=== PATIENT | male | born 1950 | race Caucasian/White ===

== ENCOUNTER 2019-09-02 10:03 | Day surgery (SDC) | payer MEDICARE ==
[~2019-09-02] VITALS: Ht 175.3 cm; Wt 66.0 kg
== END 2019-09-02 12:10 | disposition home or self-care (01) ==
LOC: ORSCSDS 10:03
PROVIDERS: Surgery
PROC: 0DBK8ZX Excision of Ascending Colon, Via Natural or Artificial Opening Endoscopic, Diagnostic (ICD-10-PCS; principal; 2019-09-02 11:15)
DX: Z12.11 Encounter for screening for malignant neoplasm of colon (principal); D12.2 Benign neoplasm of ascending colon; J45.909 Unspecified asthma, uncomplicated; F17.210 Nicotine dependence, cigarettes, uncomplicated
CPT/HCPCS: 88305; J2704

== ENCOUNTER 2022-05-08 19:03 | Inpatient (IN) | payer OTHER ==
[~2022-05-08] VITALS: Ht 177.8 cm; Wt 81.7 kg
[~2022-05-08 19:03] MED LIST: FLUT1DIS2 INH
[2022-05-08 19:20] LABS: BASOPHILS ABSOLUTE AUTO 0.05 K/mm3 (0.00-0.23); BASOPHILS PERCENT AUTO 0 % (0-2); EOSINOPHILS ABSOLUTE AUTO 0.76 K/mm3 (0.00-0.68); EOSINOPHILS PERCENT AUTO 5 % (0-6); Hematocrit 37.6 % (37.0-53.0); Hemoglobin 12.6 g/dL (13.5-17.5); IMMATURE GRAN ABSOLUTE AUTO 0.12 K/mm3 (0.00-0.10); IMMATURE GRAN PERCENT AUTO 1 % (0-1); LYMPHOCYTES PERCENT AUTO 11 % (21-46); MONOCYTES ABSOLUTE AUTO 1.02 K/mm3 (0.16-1.47); MONOCYTES PERCENT AUTO 6 % (4-13); Mean Corpuscular HGB 29.6 pg (26.0-34.0); Mean Corpuscular HGB Conc 33.5 g/dL (31.5-36.5); Mean Corpuscular Volume 89 fL (80-100); Mean Platelet Volume 9.7 fL (9.1-12.4); NEUTROPHILS ABSOLUTE AUTO 12.72 K/mm3 (1.96-9.15); NEUTROPHILS PERCENT AUTO 77 % (41-73); Platelet Count 302 K/mm3 (150-400); RDW Coefficient Variation 11.9 % (11.7-14.2); RDW Standard Deviation 38.2 fL (35.1-46.3); Red Blood Cell Count 4.25 M/mm3 (4.30-5.90); White Blood Cell Count 16.47 K/mm3 (4.00-11.30)
[2022-05-08 19:37] LABS: International Normalized Ratio 1.09; Prothrombin Time Results 11.4 Sec (9.7-11.5)
[2022-05-08 19:43] LABS: Albumin, Blood 3.4 g/dL (3.4-5.0); Albumin/Globulin Ratio 0.9 (0.8-1.8); Bilirubin, Total 0.9 mg/dL (0.1-1.0); Bun/Creatinine Ratio 19.1 (12.0-20.0); Calcium, Blood 8.5 mg/dL (8.5-10.1); Creatinine, Blood 0.94 mg/dL (0.60-1.20); Globulin, Blood 3.7 g/dL (2.2-4.0); Potassium, Blood 4.1 mmol/L (3.5-5.5); Total Protein, Blood 7.1 g/dL (6.4-8.2)
[2022-05-08] MEDS ORDERED: ALBU90OI INH (22:38)
[2022-05-09 04:39] LABS: Hematocrit 37.8 % (37.0-53.0); Hemoglobin 12.5 g/dL (13.5-17.5); Mean Corpuscular HGB 29.6 pg (26.0-34.0); Mean Corpuscular HGB Conc 33.1 g/dL (31.5-36.5); Mean Corpuscular Volume 90 fL (80-100); Platelet Count 237 K/mm3 (150-400); RDW Coefficient Variation 11.9 % (11.7-14.2); RDW Standard Deviation 38.4 fL (35.1-46.3); Red Blood Cell Count 4.22 M/mm3 (4.30-5.90); White Blood Cell Count 11.16 K/mm3 (4.00-11.30)
--- NOTE | 2022-05-09 04:48 | NUR ---
SUMMARY PT ARRIVED TO FLOOR IN NO DISTRESS. PT PAIN HAS BEEN MANAGED WELL. PT CX TUBE IS CONNECTED TO WALL SUCTION, PT BREATHING EASY. SEROSANG FLUID DRAINING IN CX TUBE. LEFT ARM IN SLING. PT ON CONTINOUS BIOX, SPO2 >90%. PT HAD A EPISODE OF NAUSEA AND WAS TX PER EMAR WITH RELIEF. PT HAS VOIDED VIA BSC. PT CURRENTLY RESTING AND IN NO DISTRESS. CALL LIGHT IN REACH.
[2022-05-09 04:58] LABS: Calcium, Blood 8.8 mg/dL (8.5-10.1); Creatinine, Blood 0.78 mg/dL (0.60-1.20); Potassium, Blood 4.3 mmol/L (3.5-5.5)
--- NOTE | 2022-05-10 04:58 | NUR ---
SUMMARY PT PAIN WELL MANAGED THIS SHIFT. PT DENIES SOB. PT AMBULATING TO BATHROOM. PT SPO2 HAS BEEN >90%. PT HAS BEEN SLEEPING VERY WELL AND VOIDING THROUGHOUT THE NIGHT. PT IS WEARING HIS SLING INSTRUCTED. PT CURRENTLY SLEEPING IN NO DISTRESS. CALL LIGHT IN REACH.
--- NOTE | 2022-05-10 11:30 | NUR ---
DR GAVIRIA AT BEDSIDE, REMOVED CHEST TUBE. GAUZE & TEGADERM PLACED.
--- NOTE | 2022-05-10 18:04 | NUR ---
SHIFT SUMMARY NO ACUTE CHANGES THIS SHIFT. DR GAVIRIA REMOVED CHEST TUBE, SITE APPEARS WNL. PATIENT DENIES SOB/DIFFICULTY BREATHING. O2 SATS MAINTAINING >92% ON ROOM AIR, VSS. PATIENT REPORTS MINIMAL PAIN, MANAGED PER EMAR. PER PATIENT, ONLY PAIN IS WHEN PATIENT COUGHS. ENCOURAGED USE OF INCENTIVE SPIROMETER & DEMONSTRATED USE, PATIENT DEMONSTRATED BACK. SBA TO BR. EATING, DRINKING, & VOIDING WELL. CALLS APPROPRIATLY.
--- NOTE | 2022-05-11 06:05 | NUR ---
SHIFT SUMMARY NO ACUTE CHANGES OVERNIGHT. PT HAD GOOD SLEEP T/O SHIFT. PT REPORTS PAIN ON L SHOULDER, L SCAPULA, L RIB PAIN. 4/10 PAIN LEVEL MEDICATED FOR PAIN BEFORE BEDTIME. PAIN IMPROVED IN THE MORNING, PAIN LEVEL AT 1/10 PAIN LEVEL. LEFT UPPER CHEST WITH GAUZE AND TEGADERM FROM CHEST TUBE SITE. CHEST TUBE WAS TAKEN OUT YESTERDAY. VSS. DENIES CP AND SOB. ENC USE I/S, DEEP BREATHING EXERCISE AND SPLINTING WHEN COUGHING. VOIDING ADEQUATELY. AOX4. CALL LIGHT WITHIN REACH. WILL PROVIDE REPORT TO ONCOMING NURSE.
[2022-05-11] MEDS ORDERED: OXYC5 PO (10:57)
--- NOTE | 2022-05-11 12:06 | NUR ---
DC'D HOME, DC INSTRUCTIONS GIVEN, VERBALIZED UNDERSTANDING, DC'D HOME WITH SIG. OTHER.
== END 2022-05-11 11:50 | disposition home or self-care (01) | DRG 200 ==
LOC: ER 19:03 → SURS 21:00
PROVIDERS: Student in an Organized Health Care Education/Training Program; ADMIT Surgery
PROC: 0W9B30Z Drainage of Left Pleural Cavity with Drainage Device, Percutaneous Approach (ICD-10-PCS; principal; 2022-05-08)
DX: S27.0XXA Traumatic pneumothorax, initial encounter (principal); S22.42XA Multiple fractures of ribs, left side, initial encounter for closed fracture; W11.XXXA Fall on and from ladder, initial encounter; R73.03 Prediabetes; J44.9 Chronic obstructive pulmonary disease, unspecified; Z88.0 Allergy status to penicillin; Z90.49 Acquired absence of other specified parts of digestive tract; Z87.891 Personal history of nicotine dependence; S42.112A Displaced fracture of body of scapula, left shoulder, initial encounter for closed fracture
CPT/HCPCS: 29105; 32551; 36415; 70450; 70498; 71045; 71046; 71260; 72125; 73030; 80048; 80053; 83036; 85025; 85027; 85610; 90471; 90714; 93005; 93010; 94640; 94664; 94760; 94762; 96374-59; 96375-59; 97110; 97116; 97162; 97165; 97530; 97535; 99285-25; A9270; J1170; J1650; J1885; J2405; J3010; Q9967